=== PATIENT | male | born 1975 | race Caucasian/White ===

== ENCOUNTER 2019-08-03 00:34 | Emergency (ER) | payer OTHER, BC ==
[2019-08-03] MEDS ORDERED: Tamsulosin 0.4 MG Cap.ER PO ONE (01:00)
[2019-08-03] MEDS ORDERED: HYDROmorphone 1 MG/ML Syringe IVPUSH ONE (01:00)
[2019-08-03] MEDS ORDERED: Ondansetron 4 MG/2 ML SDV IVPUSH ONE (01:00)
[2019-08-03] MEDS ORDERED: Ketorolac 30 MG/ML SDV IVPUSH STA (01:00)
[2019-08-03] MEDS ORDERED: Sodium Chloride 0.9% 1,000 ML IV SCH (01:00)
--- NOTE | 2019-08-03 01:05 | EDM.PDOC ---
ED HPI GENERAL MEDICAL PROBLEM - General Chief Complaint: Flank Pain Stated Complaint: RIGHT SIDE PAIN Time Seen by Provider: 08/03/19 00:47 Source of Information: Reports: Patient History Limitations: Reports: No Limitations - History of Present Illness INITIAL COMMENTS - FREE TEXT/NARRATIVE: Mr. Rivera is a very pleasant 43-year-old man with a past medical history significant for untreated GERD, untreated PTSD, and kidney stones, who now presents the ED stating that he developed sudden-onset right lower quadrant abdominal pain around 17:00 last night. He states that the pain started to radiate to his lower right back around midnight, and that it radiates to his left lower quadrant when he attempts to defecate. He has had nausea and emesis. He chronically has diarrhea, due to, he believes, drinking dairy, but no recent constipation or urinary symptoms. The patient states that his current symptoms are very similar to when he has previously had a kidney stone. The patient states that he has had a slight cough productive of yellowish sputum for the past 2 weeks. Otherwise, the patient denies recent fever, chills , sore throat, ear pain, nasal or sinus congestion, dyspnea, chest pain, palpitations, recent weight gain or weight loss, recent bloody bowel movements or black bowel movements, recent joint aches, headaches, or rashes. Here in the ED, the patient is found to be hemodynamically stable, afebrile, saturating at 97% on room air. The patient last ate around 14:00 yesterday afternoon. The [facility] P[facility] at the [facility]. He does not have a Urologist. Right Lower Abdomen Pain Score (Numeric/FACES): 5 - Related Data Allergies Allergy/AdvReac Type Severity Reaction Status Date / Time shellfish derived Allergy Difficulty Verified 08/03/19 00:42 Breathing bee Allergy Hives Uncoded 08/03/19 00:42 Home Meds: Home Meds Acetaminophen/HYDROcodone [[place] 325-5 MG] 1 - 2 tab PO Q6H PRN #24 tablet 08/02 [Rx] Ondansetron [Zofran ODT] 1 tab PO Q8H PRN #10 tab.dis 08/03/19 [Rx] Tamsulosin HCl [Flomax] 1 cap PO QAM PRN #10 cap.er.24h 08/03/19 [Rx] Past Medical History HEENT History: Reports: Impaired Vision Other HEENT History: Wears glasses Gastrointestinal History: Reports: GERD (untreated) Genitourinary History: Reports: Renal Calculus Psychiatric History: Reports: PTSD (untreated) Endocrine/Metabolic History: Reports: Vitamin D Deficiency - Infectious Disease History Infectious Disease History: Reports: Chicken Pox, Influenza - Past Surgical History HEENT Surgical History: Reports: Oral Surgery (wisdom teeth extraction 1997) Social & Family History - Family History Family Medical History: Noncontributory - Tobacco Use Smoking Status *Q: Never Smoker - Caffeine Use Caffeine Use: Reports: Soda Caffeine Use Comment: 2 drink/day - Alcohol Use Alcohol Use History: Yes Alcohol Use Frequency: Rarely - Recreational Drug Use Recreational Drug Use: No - Living Situation & Occupation Living situation: Reports: , with Spouse, with Family (17 yo son, 11 yo daughter) Occupation: Employed ([employer], [employer]) ED ROS GENERAL - Review of Systems Review Of Systems: Comprehensive ROS is negative, except as noted in HPI. ED EXAM, RENAL/ - Physical Exam Exam: See Below Exam Limited By: No Limitations General Appearance: Alert, WD/WN, Mild Distress (appears uncomfortable) Eye Exam: Bilateral Eye: EOMI, Normal Inspection Ears: Normal External Exam, Hearing Grossly Normal Nose: Normal Inspection Throat/Mouth: Normal Inspection, Normal Lips, Normal Voice, No Airway Compromise Head: Atraumatic, Normocephalic Neck: Normal Inspection, Full Range of Motion Respiratory/Chest: No Respiratory Distress, Lungs Clear, Normal Breath Sounds, No Accessory Muscle Use Cardiovascular: Normal Peripheral Pulses, Regular Rate, Rhythm, No Edema, No Gallop, No JVD, No Murmur, No Rub GI/Abdominal: Normal Bowel Sounds, Soft, Non-Tender (including the RLQ), No Organomegaly, No Distention, No Abnormal Bruit, No Mass (Male) Exam: Deferred Rectal (Males) Exam: Deferred Back Exam: Normal Inspection, Full Range of Motion. No: CVA Tenderness (L), CVA Tenderness (R) Extremities: Normal Inspection, Normal Range of Motion, No Pedal Edema, Normal Capillary Refill Neurological: Alert, Oriented, Normal Cognition, No Motor/Sensory Deficits Psychiatric: Normal Affect Skin Exam: Warm, Dry, Intact, Normal Color, No Rash Course - Vital Signs Last Recorded V/S: Last Vital Signs Temp 36.9 C 08/03/19 00:43 Pulse 76 08/03/19 00:43 Resp 16 08/03/19 00:43 BP 146/98 H 08/03/19 00:43 Pulse Ox 97 08/03/19 00:43 - Orders/Labs/Meds Orders: Active Orders 24 hr Category Date Time Status Strain Urine [RC] ASDIRECTED Care 08/03/19 04:12 Ordered Abdomen Pelvis wo Cont [CT] Stat Exams 08/03/19 00:59 Taken Sodium Chloride 0.9% [Normal Saline] 1,000 ml Med 08/03/19 01:00 Active IV ASDIRECTED Medication Orders Sodium Chloride (Normal Saline) 1,000 mls @ 250 mls/hr IV ASDIRECTED MARK Last Admin: 08/03/19 01:14 Dose: 250 mls/hr Labs: Laboratory Tests 08/03/19 Range/Units 03:40 Urine Color Yellow (Yellow) Urine Appearance Cloudy H (Clear) Urine pH 5.5 (5.0-8.0) Ur Specific [place] > or = 1.030 (1.005-1.030) Urine Protein 1+ H (Negative) Urine Glucose (UA) Negative (Negative) Urine Ketones Negative (Negative) Urine Occult Blood 2+ H (Negative) Urine Nitrite Negative (Negative) Urine Bilirubin Negative (Negative) Urine Urobilinogen 0.2 (0.2-1.0) Ur Leukocyte Esterase Negative (Negative) Urine RBC 10-20 H (0-5) /hpf Urine WBC 0-5 (0-5) /hpf Ur Squamous Epith Cells 0-5 (0-5) /hpf Amorphous Sediment Moderate H (NOT SEEN) /hpf Urine Bacteria Moderate H (FEW) /hpf Urine Mucus Moderate H (FEW) /hpf Meds: Medications Generic Name Dose Route Start Last Admin Trade Name Freq PRN Reason Stop Dose Admin Sodium Chloride 1,000 mls @ 250 mls/hr 08/03/19 01:00 08/03/19 01:14 Normal Saline IV 250 mls/hr ASDIRECTED MARK Administration Discontinued Medications Generic Name Dose Route Start Last Admin Trade Name Freq PRN Reason Stop Dose Admin Famotidine 40 mg 08/03/19 04:11 Pepcid PO 08/03/19 04:12 ONETIME STA Hydromorphone HCl 1 mg 08/03/19 01:00 08/03/19 01:16 Dilaudid IVPUSH 08/03/19 01:01 1 mg ONETIME ONE Administration Ketorolac Tromethamine 30 mg 08/03/19 01:00 08/03/19 01:15 Toradol IVPUSH 08/03/19 01:01 30 mg ONETIME STA Administration Ondansetron HCl 4 mg 08/03/19 01:00 08/03/19 01:14 Zofran IVPUSH 08/03/19 01:01 4 mg ONETIME ONE Administration Tamsulosin HCl 0.4 mg 08/03/19 01:00 08/03/19 01:14 Flomax PO 08/03/19 01:01 0.4 mg ONETIME ONE Administration - Re-Assessments/Exams Free Text/Narrative Re-Assessment/Exam: 08/03/19 01:01 It is interesting that the patient does not have right CVA tenderness, but he also does not have abdominal tenderness. His history is most consistent with a recurrence of a ureterolith. I have therefore ordered a urinalysis and a CT of his abdomen and pelvis without contrast. In the meantime, the patient will be given IV Dilaudid, oral Flomax, IV fluid, IV Toradol, and IV Zofran. 08/03/19 02:07 CT of the abdomen and pelvis without contrast as read by Liudmila as: 1. RIGHT nephrolithiasis. 4 mm RIGHT UVJ ureterolith causes moderate RIGHT hydroureteronephrosis. 2. Nonobstructing nephrolithiasis LEFT kidney. 3. No CT findings of acute appendicitis. 4. Moderate to large size hiatal hernia. Fluid within the herniated stomach. Gastroesophageal reflux. 5. Possible mild pulmonary edema versus atelectasis. 6. Additional nonemergent CT findings above. The patient has not yet provided a urine sample for urinalysis. 08/03/19 04:03 The patient's urinalysis is remarkable for cloudy appearance, 2+ occult blood with 10-20 RBCs, leukocyte esterase negative with 0-5 WBCs, nitrite negative with moderate bacteria, and 0-5 squamous epithelial cells. The patient's urinalysis is consistent with a kidney stone, but not consistent with an infection. I will discharge the patient home with prescriptions for Torrey, Flomax, and Zofran. I am also going to recommend that the patient start taking an H2 quentin, such as famotidine, twice a day, to treat his asymptomatic GERD. 08/03/19 04:12 The above plan was discussed with the patient. He is agreeable. We will start him on famotidine now. He will be given a urine strainer before being discharged home. Departure - Departure Time of Disposition: 04:13 Disposition: Home, Self-Care 01 Condition: Good Clinical Impression: Ureterolithiasis, GERD (gastroesophageal reflux disease) - Discharge Information *PRESCRIPTION DRUG MONITORING PROGRAM REVIEWED*: Not Applicable *COPY OF PRESCRIPTION DRUG MONITORING REPORT IN PATIENT ROSIE: Not Applicable Prescriptions: Acetaminophen/HYDROcodone [[place] 325-5 MG] 1 - 2 tab PO Q6H PRN #24 tablet PRN Reason: Pain (Severe 7-10) Ondansetron [Zofran ODT] 1 tab PO Q8H PRN #10 tab.dis PRN Reason: Nausea/Vomiting Tamsulosin HCl [Flomax] 1 cap PO QAM PRN #10 cap.er.24h PRN Reason: Pain Instructions: Kidney Stones, [id number], Gastroesophageal Reflux Disease, Adult, [id number] Referrals: Sarah Melchor MD [Primary Care Provider] - Emre Cadet MD [Ordering Only Provider] - Forms: ED Department Discharge Additional Instructions: You were seen in the emergency room for sudden-onset lower right abdominal pain that eventually radiated to your lower right back. Work-up in the ER included a urinalysis and a CT scan of your abdomen and pelvis without contrast. The CT scan confirmed that you have a 4 mm stone in your lower right ureter, just above the bladder. The CT scan also confirmed that you have acid reflux. Based on the size and location of the stone, you will most likely pass it on your own. We recommend that you take [id number] ibuprofen, 3 tablets (600 mg) every 8 hours, with food, [id number], as needed for discomfort. You may take 1 to 2 tablets of the opioid pain reliever Torrey up to every 6 hours as needed for pain not relieved by ibuprofen. If you take Torrey, do not drive or operate heavy machinery for 12 hours afterwards. Torrey may cause constipation, so consider taking a stool softener. Take 1 tablet of the anti-spasm medicine Flomax every morning, starting tomorrow morning, , 08/04/2019, as needed for discomfort. You may dissolve 1 tablet of the anti-nausea medicine Zofran on your tongue up to every 8 hours, as needed for nausea/vomiting. For your acid reflux, we recommend that you begin taking [id number] famotidine (Pepcid), 1 tablet twice a day. Stay adequately hydrated. It does not really matter what type of fluid you drink. Strain all of your urine. If you capture the stone, take it to your doctor for analysis. If you fail to pass the stone within the next week or so, please follow-up with the Urologist Dr. Emre Cadet, in [place]. If any other problems, please do not hesitate to return to the ER. Sepsis Event Note - Evaluation Sepsis Screening Result: No Definite Risk - Focused Exam Vital Signs: Vital Signs Temp Pulse Resp BP Pulse Ox 08/03/19 00:43 36.9 C 76 16 146/98 H 97 Date Exam was Performed: 08/03/19 Time Exam was Performed: 04:24 - My Orders Last 24 Hours: My Active Orders 08/03/19 00:59 Abdomen Pelvis wo Cont [CT] Stat 08/03/19 01:00 Sodium Chloride 0.9% [Normal Saline] 1,000 ml IV ASDIRECTED 08/03/19 04:12 Strain Urine [RC] ASDIRECTED - Assessment/Plan Last 24 Hours: My Active Orders 08/03/19 00:59 Abdomen Pelvis wo Cont [CT] Stat 08/03/19 01:00 Sodium Chloride 0.9% [Normal Saline] 1,000 ml IV ASDIRECTED 08/03/19 04:12 Strain Urine [RC] ASDIRECTED
[2019-08-03] MEDS ORDERED: Famotidine 20 MG Tab PO STA (04:11)
--- NOTE | 2019-08-03 07:21 | CT ---
CT abdomen and pelvis Technique: Multiple axial sections were obtained from above the dome of the diaphragm inferiorly through the pubic symphysis. Intravenous and oral contrast was not utilized. Study has been performed as a ureteral stone protocol. Comparison: Prior CT abdomen and pelvis study of 03/12/18. Findings: Visualized lung bases show nothing acute. Moderately large hiatal hernia is noted. Noncontrast appearance of the liver and spleen shows no focal abnormality. Right adrenal gland shows a nodule measuring 1.8 cm. This appears stable from prior exam and most likely represents a small adrenal adenoma. Left adrenal gland is unremarkable. Pancreas is normal. Gallbladder contains no calcified gallstones. Aorta shows no aneurysm. No retroperitoneal adenopathy or mesenteric abnormalities are seen. No free fluid or inflammatory change is seen. Appendix is seen which is normal. Right kidney shows a nonobstructing stone within the mid pole measuring 5 mm. Vague calcifications are noted within the lower pole of the left kidney most likely representing additional nonobstructing calculi. Right ureter is mildly prominent in size. There are 1 or 2 possible calcifications within the right distal ureter close to the UVJ measuring around 4 mm. No other ureteral calculi are seen. Bone window settings were reviewed which appear within normal limits for the patient's age with no acute osseous finding being appreciated. Impression: 1. Mildly dilated right ureter with 1 or 2 calcifications within the distal right ureter compatible with obstructing distal right ureteral calculi located close to the UVJ. These measure around 4 mm in size. 2. Nonobstructing calculi within both kidneys. 3. Other findings believed to be stable and nonacute as described above. Diagnostic code #3 This report was dictated in MDT I agree with preliminary report from [facility], finalized on 08/03/19, 2:52 AM Central Daylight Time
== END 2019-08-03 04:34 | disposition home or self-care (01) ==
LOC: JD.ED 00:34
DX: N20.2 Calculus of kidney with calculus of ureter (principal); K21.9 Gastro-esophageal reflux disease without esophagitis; Z91.030 Bee allergy status; Z91.013 Allergy to seafood
CPT/HCPCS: 74176; 81001; 96361; 96374; 96375; 99284; A9270; J1170; J1885; J2405; J7030

== ENCOUNTER 2020-08-07 15:48 | Emergency (ER) | payer OTHER ==
--- NOTE | 2020-08-07 17:00 | EDM.PDOC ---
ED HPI GENERAL MEDICAL PROBLEM - General Chief Complaint: Laceration Stated Complaint: LT THUMB FINGER LAC Time Seen by Provider: 08/07/20 16:42 Source of Information: Reports: Patient, RN Notes Reviewed History Limitations: Reports: No Limitations - History of Present Illness INITIAL COMMENTS - FREE TEXT/NARRATIVE: Patient is a 44-year-old male presenting to the emergency department with complaints of a laceration to the medial aspect of his left distal thumb. States he was cutting up asparagus this morning when he cut his finger. He had a Band-Aid on it and the bleeding had initially stopped, however it started again, therefore he presents to the ER for evaluation. He is unsure when his last tetanus vaccination was, however states he did have a ER visit in [place] a few years back with a finger injury. - Related Data Allergies Allergy/AdvReac Type Severity Reaction Status Date / Time shellfish derived Allergy Difficulty Verified 08/07/20 16:02 Breathing bee Allergy Hives Uncoded 08/07/20 16:02 Home Meds: Home Meds Acetaminophen/HYDROcodone [[place] 325-5 MG] 1 - 2 tab PO Q6H PRN #24 tablet 08/03/19 [Rx] Ondansetron [Zofran ODT] 1 tab PO Q8H PRN #10 tab.dis 08/03/19 [Rx] Tamsulosin HCl [Flomax] 1 cap PO QAM PRN #10 cap.er.24h 08/03/19 [Rx] Past Medical History - Past Health History Medical/Surgical History: Denies Medical/Surgical History HEENT History: Reports: Impaired Vision Other HEENT History: Wears glasses Cardiovascular History: Reports: None Respiratory History: Reports: None Gastrointestinal History: Reports: GERD Other Gastrointestinal History: acid reflux Genitourinary History: Reports: Renal Calculus Musculoskeletal History: Reports: None Neurological History: Reports: None Psychiatric History: Reports: PTSD Endocrine/Metabolic History: Reports: Vitamin D Deficiency Hematologic History: Reports: None Oncologic (Cancer) History: Reports: None Dermatologic History: Reports: None - Infectious Disease History Infectious Disease History: Reports: Chicken Pox, Influenza, Novel Coronavirus Other Infectious Disease History: Nov 2019 - Past Surgical History HEENT Surgical History: Reports: Oral Surgery GI Surgical History: Reports: None Male Surgical History: Reports: None Social & Family History - Family History Family Medical History: No Pertinent Family History - Tobacco Use Tobacco Use Status *Q: Never Tobacco User - Caffeine Use Caffeine Use: Reports: None Caffeine Use Comment: 2 drink/day - Recreational Drug Use Recreational Drug Use: No - Living Situation & Occupation Living situation: Reports: , with Spouse, with Family (17 yo son, 11 yo daughter) Occupation: Employed ([employer]) ED ROS GENERAL - Review of Systems Review Of Systems: Comprehensive ROS is negative, except as noted in HPI. ED EXAM, SKIN/RASH Exam: See Below Exam Limited By: No Limitations General Appearance: Alert, WD/WN, No Apparent Distress Respiratory/Chest: No Respiratory Distress, Lungs Clear, Normal Breath Sounds, No Accessory Muscle Use, Chest Non-Tender Cardiovascular: Normal Peripheral Pulses, Regular Rate, Rhythm, No Edema, No Gallop, No JVD, No Murmur, No Rub Extremities: Other (1.5 cm superficial laceration to the medial aspect of the le ft distal thumb. No active bleeding.) ED SKIN PROCEDURES - Laceration/Wound Repair Left Medial Digit - 1st (Thumb) Appearance: Superficial Skin Prep: Chlorhexidine (Hibiciens), Saline Exploration/Debridement/Repair: Wound Explored Closed with: Dermabond Lac/Wound length In cm: 1.5 Sterile Dressing Applied: Nurse Tetanus Status Addressed: Yes Complications: No Course - Vital Signs Last Recorded V/S: Last Vital Signs Temp 98.1 F 08/07/20 15:59 Pulse 75 08/07/20 15:59 Resp 18 08/07/20 15:59 BP 140/107 H 08/07/20 15:59 Pulse Ox 99 08/07/20 15:59 - Re-Assessments/Exams Free Text/Narrative Re-Assessment/Exam: Patient is a 44-year-old male presenting to the emergency department for evaluation with regards to a laceration on his left thumb that he incurred this morning. Initially it stopped bleeding, however after removing the Band-Aid it started bleeding again. On exam, he has a 1.5 cm fairly superficial laceration. It is not gaping. There is no active bleeding. I was able to close it with surgical glue. See procedure notes for closure. Recommend wearing a Band-Aid for the next few days to prevent the glue from coming off prematurely. On review of his records, he did have a tetanus vaccination in 2017, therefore he is current with that. Discharge instructions as documented. Departure - Departure Time of Disposition: 16:59 Disposition: Home, Self-Care 01 Condition: Good Clinical Impression: Laceration of finger of left hand - Discharge Information *PRESCRIPTION DRUG MONITORING PROGRAM REVIEWED*: No *COPY OF PRESCRIPTION DRUG MONITORING REPORT IN PATIENT ROSIE: No Instructions: Laceration Care, Adult Referrals: Sarah Melchor MD [Primary Care Provider] - Forms: ED Department Discharge Additional Instructions: You were seen in the emergency department today for a laceration to your left thumb. The wound was cleansed and closed with surgical glue. This will begin to gradually follow-up over the next few days. Recommend wearing a Band-Aid over the area to prevent the glue from falling off prematurely. Watch for signs of infection including increased redness, swelling, or purulent drainage. If these should occur, you should be seen either in the clinic or in the emergency department as antibiotic treatment may be needed. Return to the ER as needed. Sepsis Event Note (ED) - Evaluation Sepsis Screening Result: No Definite Risk - Focused Exam Vital Signs: Vital Signs Temp Pulse Resp BP Pulse Ox 08/07/20 15:59 98.1 F 75 18 140/107 H 99
== END 2020-08-07 17:20 | disposition home or self-care (01) ==
LOC: JD.ED 15:48
DX: S61.012A Laceration without foreign body of left thumb without damage to nail, initial encounter (principal); Z91.030 Bee allergy status; Z91.013 Allergy to seafood; Z86.16 Personal history of COVID-19; W26.8XXA Contact with other sharp object(s), not elsewhere classified, initial encounter
CPT/HCPCS: 12001; 12011; 99282; 99282-25

== ENCOUNTER 2020-11-05 21:18 | Emergency (ER) | payer OTHER ==
[2020-11-05] MEDS ORDERED: HYDROmorphone 1 MG/ML Syringe IVPUSH ONE (23:03)
[2020-11-05] MEDS ORDERED: Ondansetron 4 MG/2 ML SDV IVPUSH ONE (23:03)
[2020-11-05] MEDS ORDERED: Tamsulosin 0.4 MG Cap.ER PO ONE (23:03)
[2020-11-05] MEDS ORDERED: Ketorolac 30 MG/ML SDV IVPUSH STA (23:03)
--- NOTE | 2020-11-05 23:11 | EDM.PDOC ---
ED HPI GENERAL MEDICAL PROBLEM - General Chief Complaint: Abdominal Pain Stated Complaint: FLANK PAIN Time Seen by Provider: 11/05/20 22:53 Source of Information: Reports: Patient, Family (Son) History Limitations: Reports: No Limitations - History of Present Illness INITIAL COMMENTS - FREE TEXT/NARRATIVE: Mr. Rivera is a very pleasant with a past medical history significant for ureterolithiasis, who now presents the ED stating that he developed sudden-onset right flank pain, along with nausea and vomiting around 17:00 this evening. The pain has been constant, although he states that it is starting to let up now. He has not identified any modifiers. He states that his symptoms are virtually identical to prior kidney stones. He did not take any [id number] or home remedies prior to coming to the ED. Here in the ED, the patient's initial BP is found to be mildly elevated at 157/113, otherwise, he is hemodynamically stable, afebrile, saturating 100% on room air. He appears to be somewhat uncomfortable, but in no acute distress. Prior to 17:00 this evening, the patient denies having a recent fever, chills, sore throat, ear pain, nasal or sinus congestion, cough, dyspnea, chest pain, palpitations, nausea, vomiting, constipation, diarrhea, abdominal pain, urinary symptoms, recent weight gain or weight loss, recent bloody bowel movements or black bowel movements, recent joint aches, headaches, or rashes. The patient's PCP is Dr. Sarah Melchor at the [facility]. He does not have a Urologist. Right Flank Pain Score (Numeric/FACES): 7 Lower Pelvic Pain Score (Numeric/FACES): 8 - Related Data Allergies Allergy/AdvReac Type Severity Reaction Status Date / Time shellfish derived Allergy Severe Difficulty Verified 11/05/20 21:41 Breathing bee Allergy Severe Hives Uncoded 11/05/20 21:41 Home Meds: Home Meds Acetaminophen/HYDROcodone [[place] 325-5 MG] 1 - 2 tab PO Q6H PRN #24 tablet 08/03/19 [Rx] Ondansetron [Zofran ODT] 1 tab PO Q8H PRN #10 tab.dis 08/03/19 [Rx] Tamsulosin HCl [Flomax] 1 cap PO QAM PRN #10 cap.er.24h 08/03/19 [Rx] Pantoprazole Sodium [Protonix] 40 mg PO DAILY 11/05/20 [History] Sucralfate 1 gram PO QID 11/05/20 [History] Ondansetron [Zofran ODT] 1 tab PO Q8H PRN #10 tab.dis 11/06/20 [Rx] Tamsulosin [Flomax] 1 cap PO QAM PRN #10 cap.er 11/06/20 [Rx] oxyCODONE HCl/Acetaminophen [Percocet 2.5-325 mg Tablet] 1 - 2 tab PO Q6H PRN #14 tablet 11/06/20 [Rx] Past Medical History HEENT History: Reports: Impaired Vision (wears glasses) Gastrointestinal History: Reports: GERD Genitourinary History: Reports: Renal Calculus Psychiatric History: Reports: PTSD (untreated) Endocrine/Metabolic History: Reports: Vitamin D Deficiency - Infectious Disease History Infectious Disease History: Reports: Chicken Pox, Influenza, Novel Coronavirus (Nov 2019) - Past Surgical History HEENT Surgical History: Reports: Oral Surgery (dental extractions) Social & Family History - Tobacco Use Tobacco Use Status *Q: Former Tobacco User Month/Year Tobacco Last Used: Quit early - Caffeine Use Caffeine Use: Reports: Soda Caffeine Use Comment: 2 drink/day - Alcohol Use Alcohol Use History: No - Recreational Drug Use Recreational Drug Use: No - Living Situation & Occupation Living situation: Reports: , with Family (4 kids) 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 ED EXAM, RENAL/ - Physical Exam Exam: See Below Exam Limited By: No Limitations General Appearance: Alert, WD/WN, Mild Distress (appears uncomfortable) Eye Exam: Bilateral Eye: EOMI, Normal Inspection Ears: Normal External Exam, Hearing Grossly Normal Nose: Normal Inspection Throat/Mouth: Normal Inspection, Normal Lips, Normal Voice, No Airway Compromise Head: Atraumatic, Normocephalic Neck: Normal Inspection, Full Range of Motion Respiratory/Chest: No Respiratory Distress, Lungs Clear, Normal Breath Sounds, No Accessory Muscle Use Cardiovascular: Normal Peripheral Pulses, Regular Rate, Rhythm, No Edema, No Gallop, No JVD, No Murmur, No Rub GI/Abdominal: Normal Bowel Sounds, Soft, Non-Tender (including the RLQ), No Organomegaly, No Distention, No Abnormal Bruit, No Mass Back Exam: Normal Inspection, Full Range of Motion. No: CVA Tenderness (L), CVA Tenderness (R) Extremities: Normal Inspection, Normal Range of Motion, No Pedal Edema, Normal Capillary Refill Neurological: Alert, Oriented, Normal Cognition, No Motor/Sensory Deficits Psychiatric: Normal Affect Skin Exam: Warm, Dry, Intact, Normal Color, No Rash Course - Vital Signs Last Recorded V/S: Last Vital Signs Temp 36.0 C L 11/05/20 21:47 Pulse 76 11/05/20 21:47 Resp 20 11/05/20 21:47 BP 157/113 H 11/05/20 21:47 Pulse Ox 100 11/05/20 21:47 - Orders/Labs/Meds Orders: Active Orders 24 hr Category Date Time Status Strain Urine [RC] ASDIRECTED Care 11/06/20 00:29 Active Abdomen Pelvis wo Cont [CT] Stat Exams 11/05/20 23:02 Taken Sodium Chloride 0.9% [Normal Saline] 1,000 ml Med 11/05/20 23:15 Active IV ASDIRECTED Medication Orders Sodium Chloride (Normal Saline) 1,000 mls @ 150 mls/hr IV ASDIRECTED MARK Last Admin: 11/05/20 23:14 Dose: 150 mls/hr Documented by: STEPHANIE Labs: Laboratory Tests 11/05/20 Range/Units 23:08 Urine Color Yellow (Yellow) Urine Appearance Slt cloudy H (Clear) Urine pH 6.0 (5.0-8.0) Ur Specific [place] > or = 1.030 (1.005-1.030) Urine Protein 2+ H (Negative) Urine Glucose (UA) Negative (Negative) Urine Ketones Negative (Negative) Urine Occult Blood 3+ H (Negative) Urine Nitrite Negative (Negative) Urine Bilirubin Negative (Negative) Urine Urobilinogen 0.2 (0.2-1.0) Ur Leukocyte Esterase Negative (Negative) Urine RBC 75-100 H (0-5) /hpf Urine WBC 0-5 (0-5) /hpf Ur Squamous Epith Cells 0-5 (0-5) /hpf Urine Bacteria Few (FEW) /hpf Urine Mucus Moderate H (FEW) /hpf Meds: Medications Generic Name Dose Route Start Last Admin Trade Name Nandini PRN Reason Stop Dose Admin Sodium Chloride 1,000 mls @ 150 mls/hr 11/05/20 23:15 11/05/20 23:14 Normal Saline IV 150 mls/hr ASDIRECTED MARK Administration Discontinued Medications Generic Name Dose Route Start Last Admin Trade Name Nandini PRN Reason Stop Dose Admin Hydromorphone HCl 1 mg 11/05/20 23:03 11/05/20 23:14 Hydromorphone 1 Mg/Ml Syringe IVPUSH 11/05/20 23:04 1 mg ONETIME ONE Administration Ketorolac Tromethamine 30 mg 11/05/20 23:03 11/05/20 23:14 Ketorolac 30 Mg/Ml Sdv IVPUSH 11/05/20 23:04 30 mg ONETIME STA Administration Ondansetron HCl 4 mg 11/05/20 23:03 11/05/20 23:14 Ondansetron 4 Mg/2 Ml Sdv IVPUSH 11/05/20 23:04 4 mg ONETIME ONE Administration Tamsulosin HCl 0.4 mg 11/05/20 23:03 11/05/20 23:15 Tamsulosin 0.4 Mg Cap.Er PO 11/05/20 23:04 0.4 mg ONETIME ONE Administration - Re-Assessments/Exams Free Text/Narrative Re-Assessment/Exam: 11/05/20 23:04 As above, the patient developed sudden-onset right flank pain and vomiting around 17:00 this evening, and since then, the pain has radiated down to his right lower quadrant. His symptoms are similar to prior ureteroliths. He did not take any [id number] or home remedies prior to coming to the ED. Here in the ED, the patient noticed that his urine appears to be dark. On examination, the patient does not have any CVA tenderness or abdominal tenderness, including the right lower quadrant, however, his presentation is most consistent with a right ureterolith, therefore I have ordered a urinalysis and CT of the abdomen and pelvis without contrast to evaluate. In the meantime, the patient will be given IV Dilaudid, oral Flomax, IV fluid, IV Toradol, and IV Zofran. 11/06/20 00:11 The patient's urinalysis is remarkable for 3+ occult blood with 75-100 RBCs, leukocyte esterase negative with 0-5 WBCs, nitrite negative with few bacteria, and 0-5 squamous epithelial cells. 11/06/20 00:43 CT of the abdomen and pelvis without contrast is read by [facility] as: 1. 3 mm distal right ureteral calculus at the UVJ or just in the bladder with hydroureter and hydronephrosis. 2. Mild right perinephric stranding suggests forniceal rupture and/or infection. 11/06/20 00:55 Test results discussed with the patient. He states that he is feeling much better. I will discharge him home with prescriptions for [place], tamsulosin, and Zofran. He will be given a urine strainer to strain his urine. He should stay adequately hydrated. He will also be given a CD-ROM of his CT images; I would like him to follow-up with Dr. Cadet regarding the possible forniceal rupture. Departure - Departure Time of Disposition: 00:56 Disposition: Home, Self-Care 01 Condition: Good Clinical Impression: Ureterolithiasis - Discharge Information *PRESCRIPTION DRUG MONITORING PROGRAM REVIEWED*: Not Applicable *COPY OF PRESCRIPTION DRUG MONITORING REPORT IN PATIENT ROSIE: Not Applicable Prescriptions: Tamsulosin [Flomax] 1 cap PO QAM PRN #10 cap.er PRN Reason: Pain oxyCODONE HCl/Acetaminophen [Percocet 2.5-325 mg Tablet] 1 - 2 tab PO Q6H PRN #14 tablet PRN Reason: Pain (Severe 7-10) Ondansetron [Zofran ODT] 1 tab PO Q8H PRN #10 tab.dis PRN Reason: Nausea/Vomiting Referrals: Sarah Melchor MD [Primary Care Provider] - Emre Cadet MD [Ordering Only Provider] - Forms: ED Department Discharge Additional Instructions: You were seen in the emergency room after you developed sudden-onset right flank pain with vomiting. Work-up in the ER included a urinalysis and a CT scan of your abdomen and pelvis. Your urine showed blood, but no infection. The CT scan found a 3 mm stone at the junction of your right ureter and bladder. It is possible that you have already passed this stone into your bladder. The CT scan also found some stranding around your kidney, suggesting that there may be some injury to the inside of your kidney. We recommend that you stay adequately hydrated. It does not really matter what type of fluid you drink. You have been provided with a urine strainer. Please strain all of your urine. If you capture the stone, take it to your doctor for analysis. We recommend that you take [id number] ibuprofen, 2 to 3 tablets (400-600 mg) around the clock, with food, for the next couple of days, until you are feeling better. You have been provided with a prescription for the opioid pain reliever Percocet. You may take 1 to 2 tablets of Percocet up to every 6 hours, as needed for pain not relieved by ibuprofen. If you take Percocet, do not drive or operate heavy machinery for 12 hours afterwards. Percocet may cause constipation, so consider taking a stool softener. You may take 1 tablet of the anti-spasm medicine tamsulosin (Flomax) every morning, starting tomorrow morning, 11/07/2020, as prescribed. You may dissolve 1 tablet of the antinausea medicine Zofran on your tongue up to every 8 hours, as needed for nausea/vomiting. You have been provided with a CD ROM of your CT images. Please follow-up with the Urologist Dr. Emre Cadet, in [place], at the next available appointment, to have him review the CT images to see if anything needs to be do ne. Don't forget that [place] is 1 hour ahead of us. If any other problems, please do not hesitate to return to the ER. Sepsis Event Note (ED) - Evaluation Sepsis Screening Result: No Definite Risk - Focused Exam Vital Signs: Vital Signs Temp Pulse Resp BP Pulse Ox 11/05/20 21:47 36.0 C L 76 20 157/113 H 100 - My Orders Last 24 Hours: My Active Orders 11/05/20 23:02 Abdomen Pelvis wo Cont [CT] Stat 11/05/20 23:15 Sodium Chloride 0.9% [Normal Saline] 1,000 ml IV ASDIRECTED 11/06/20 00:29 Strain Urine [RC] ASDIRECTED - Assessment/Plan Last 24 Hours: My Active Orders 11/05/20 23:02 Abdomen Pelvis wo Cont [CT] Stat 11/05/20 23:15 Sodium Chloride 0.9% [Normal Saline] 1,000 ml IV ASDIRECTED 11/06/20 00:29 Strain Urine [RC] ASDIRECTED
[2020-11-05] MEDS ORDERED: Sodium Chloride 0.9% 1,000 ML IV SCH (23:15)
--- NOTE | 2020-11-06 07:57 | CT ---
CT abdomen and pelvis Technique: Multiple axial sections were obtained from above the dome of the diaphragm inferiorly through the pubic symphysis. Intravenous and oral contrast were not utilized. Study has been performed as a ureteral stone protocol. Comparison: Prior CT abdomen and pelvis study of 03/12/18. Findings: Right kidney shows dilated collecting system as well as dilated right ureter. These findings are caused by a small calculus measuring about 3.5-4 mm which is located within the right UVJ or possibly slightly outside the right UVJ within the bladder. Please correlate with patient's symptoms. Slight inflammatory change is seen compatible with obstruction around the right ureter and kidney. Small nonobstructing calculus is seen within the left kidney. Right kidney shows no abnormal calcifications. Slight chronic change is noted next to a fairly large hiatal hernia within the left lung base. Noncontrast appearance of the liver shows no focal abnormality. Spleen size is normal. Nodule is noted within the right adrenal gland which is most likely due to a benign adrenal adenoma which is stable from prior exam. Left adrenal gland is normal. Pancreas shows no acute abnormality. Gallbladder contains no calcified gallstones. Abdominal aorta shows no aneurysm. No retroperitoneal adenopathy or mesenteric abnormalities are seen. Appendix is seen which is normal. No pelvic mass or adenopathy is seen. Bone window settings were reviewed which show no acute osseous finding. Impression: 1. 3.5-4 mm calculus causing proximal hydronephrosis on the right side. This calculus is located either within the distal UVJ or within the adjacent bladder. Please correlate with the patient's symptoms. 2. Nonobstructing small stone within the left kidney. 3. Other findings believed to be nonacute as described above. Diagnostic code #3 I mostly agree with preliminary report from [facility], finalized on 11/06/20, 1:39 AM CDT, code 2
== END 2020-11-06 01:23 | disposition home or self-care (01) ==
LOC: JD.ED 21:18
DX: N13.2 Hydronephrosis with renal and ureteral calculous obstruction (principal); K21.9 Gastro-esophageal reflux disease without esophagitis; Z79.899 Other long term (current) drug therapy; Z86.16 Personal history of COVID-19; Z91.030 Bee allergy status; Z91.013 Allergy to seafood
CPT/HCPCS: 74176; 81001; 96374; 96375; 99284; A9270; J1170; J1885; J2405; J7030

== ENCOUNTER 2021-03-12 23:43 | Emergency (ER) | payer OTHER ==
[2021-03-13] MEDS ORDERED: Ondansetron 4 MG/2 ML SDV IVPUSH ONE ×2 (00:01→00:48)
[2021-03-13] MEDS ORDERED: Sodium Chloride 0.9% 10 ML Syringe FLUSH PRN (00:01)
[2021-03-13] MEDS ORDERED: Sodium Chloride 0.9% 1,000 ML IV SCH (00:15)
[2021-03-13] MEDS ORDERED: HYDROmorphone 1 MG/ML Syringe IVPUSH ONE (00:48)
--- NOTE | 2021-03-13 00:52 | EDM.PDOC ---
ED HPI GENERAL MEDICAL PROBLEM - General Chief Complaint: Gastrointestinal Problem Stated Complaint: VOMITING/BACK PAIN Time Seen by Provider: 03/13/21 00:35 Source of Information: Reports: Patient History Limitations: Reports: No Limitations - History of Present Illness INITIAL COMMENTS - FREE TEXT/NARRATIVE: Mr. Rivera is a very pleasant 45-year-old gentleman who states that he ate around 19:00 this evening, then developed nausea with emesis around 20:00, followed by right flank pain around 20:15, which has progressively gotten worse. The patient states that his pain is the same as prior kidney stones, although he has not previously had nausea and vomiting associated with them. He has not taken any kpbj-jfn-[id number] or home remedies since the onset of his symptoms. Here in the ED, the patient's initial BP is found to be elevated at 162/110, with slight tachypnea of 24 rpm. He is afebrile, saturating 98% on room air. He appears to be somewhat uncomfortable, although in no acute distress. The patient states that he suffers from chronic watery diarrhea, otherwise, prior to this evening, he denies having a recent fever, chills, sore throat, ear pain, nasal or sinus congestion, cough, dyspnea, chest pain, palpitations, nausea, vomiting, constipation, abdominal pain, urinary symptoms, recent weight gain or weight loss, recent bloody bowel movements or black bowel movements, recent joint aches, headaches, or rashes. The patient's PCP is Dr. Sarah Melchor at the [facility] clinic. He has not received a COVID vaccination, nor an influenza vaccination this season. Back Pain Score (Numeric/FACES): 4 - Related Data Allergies Allergy/AdvReac Type Severity Reaction Status Date / Time shellfish derived Allergy Severe Difficulty Verified 03/12/21 23:52 Breathing bee Allergy Severe Hives Uncoded 03/12/21 23:52 Home Meds: Home Meds Acetaminophen/HYDROcodone [[place] 325-5 MG] 1 - 2 tab PO Q6H PRN #24 tablet 08/03/19 [Rx] Ondansetron [Zofran ODT] 1 tab PO Q8H PRN #10 tab.dis 08/03/19 [Rx] Tamsulosin HCl [Flomax] 1 cap PO QAM PRN #10 cap.er.24h 08/03/19 [Rx] Pantoprazole Sodium [Protonix] 40 mg PO DAILY 11/05/20 [History] Sucralfate 1 gram PO QID 11/05/20 [History] Ondansetron [Zofran ODT] 1 tab PO Q8H PRN #10 tab.dis 11/06/20 [Rx] Tamsulosin [Flomax] 1 cap PO QAM PRN #10 cap.er 11/06/20 [Rx] oxyCODONE HCl/Acetaminophen [Percocet 2.5-325 mg Tablet] 1 - 2 tab PO Q6H PRN #14 tablet 11/06/20 [Rx] Acetaminophen/oxyCODONE [Percocet 325-5 MG] 1 - 2 tab PO Q6H PRN #24 tab 03/13/21 [Rx] Ondansetron [Zofran ODT] 1 tab PO Q8H PRN #20 tab.dis 03/13/21 [Rx] Tamsulosin [Flomax] 1 cap PO QAM PRN #15 cap.er 03/13/21 [Rx] Past Medical History HEENT History: Reports: Impaired Vision (wears glasses) Gastrointestinal History: 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) Genitourinary History: Reports: Renal Calculus Psychiatric History: Reports: Depression (untreated), PTSD (untreated) Endocrine/Metabolic History: Reports: Vitamin D Deficiency - Infectious Disease History Infectious Disease History: Reports: Chicken Pox, Influenza, Novel Coronavirus (dx'd Nov 2019) - Past Surgical History HEENT Surgical History: Reports: Oral Surgery Social & Family History - Tobacco Use Tobacco Use Status *Q: Former Tobacco User Years of Tobacco use: 3 Packs/Tins Daily: 1 Month/Year Tobacco Last Used: Quit early Tobacco Use Comment: Started smoking 1989 - Caffeine Use Caffeine Use: Reports: Energy Drinks, Soda Caffeine Use Comment: 2 drink/day - Alcohol Use Alcohol Use History: No - Recreational Drug Use Recreational Drug Use: No - Living Situation & Occupation Living situation: Reports: , with Family (1 child) 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 ED EXAM, RENAL/ - Physical Exam Exam: See Below Exam Limited By: No Limitations General Appearance: Alert, WD/WN, Mild Distress (Appears uncomfortable) Eye Exam: Bilateral Eye: EOMI, Normal Inspection Ears: Normal External Exam, Hearing Grossly Normal Nose: Normal Inspection Throat/Mouth: Normal Inspection, Normal Lips, Normal Voice, No Airway Compromise Head: Atraumatic, Normocephalic Neck: Normal Inspection, Full Range of Motion Respiratory/Chest: No Respiratory Distress, Lungs Clear, Normal Breath Sounds, No Accessory Muscle Use Cardiovascular: Normal Peripheral Pulses, Regular Rate, Rhythm, No Edema, No Gallop, No JVD, No Murmur, No Rub GI/Abdominal: Normal Bowel Sounds, Soft, Non-Tender (including on the right), No Organomegaly, No Distention, No Abnormal Bruit, No Mass Back Exam: Normal Inspection, Full Range of Motion. No: CVA Tenderness (L), CVA Tenderness (R) Extremities: Normal Inspection, Normal Range of Motion, Non-Tender, Normal Capillary Refill, No Pedal Edema Neurological: Alert, Oriented, Normal Cognition, No Motor/Sensory Deficits Psychiatric: Normal Affect Skin Exam: Warm, Dry, Intact, Normal Color, No Rash Course - Vital Signs Last Recorded V/S: Last Vital Signs Temp 35.8 C L 03/12/21 23:49 Pulse 74 03/12/21 23:49 Resp 24 H 03/12/21 23:49 BP 162/110 H 03/12/21 23:49 Pulse Ox 98 03/12/21 23:49 Orthostatic Blood Pressure [ 165/105 Standing] Orthostatic Blood Pressure [ 168/111 Supine] - Orders/Labs/Meds Labs: Laboratory Tests 03/13/21 03/13/21 03/13/21 Range/Units 00:15 00:15 04:35 WBC 10.44 H (4.23-9.07) K/mm3 RBC 5.00 (4.63-6.08) M/mm3 Hgb 14.5 (13.7-17.5) gm/dl Hct 43.1 (40.1-51.0) % MCV 86.2 (79.0-92.2) fl MCH 29.0 (25.7-32.2) pg MCHC 33.6 (32.2-35.5) g/dl RDW Std Deviation 43.0 (35.1-43.9) fL Plt Count 257 (163-337) K/mm3 MPV 9.6 (9.4-12.3) fl Neut % (Auto) 81.4 H (34.0-67.9) % Lymph % (Auto) 14.4 L (21.8-53.1) % Stanley % (Auto) 3.4 L (5.3-12.2) % Eos % (Auto) 0.3 L (0.8-7.0) Baso % (Auto) 0.3 (0.1-1.2) % Neut # (Auto) 8.50 H (1.78-5.38) K/mm3 Lymph # (Auto) 1.50 (1.32-3.57) K/mm3 Stanley # (Auto) 0.36 (0.30-0.82) K/mm3 Eos # (Auto) 0.03 L (0.04-0.54) K/mm3 Baso # (Auto) 0.03 (0.01-0.08) K/mm3 Sodium 145 (136-145) mEq/L Potassium 4.1 (3.5-5.1) mEq/L Chloride 105 (98-107) mEq/L Carbon Dioxide 28 (21-32) mEq/L Anion Gap 16.1 H (5-15) BUN 21 H (7-18) mg/dL Creatinine 1.6 H (0.7-1.3) mg/dL Est Cr Clr Drug Dosing 64.50 mL/min Estimated GFR (MDRD) 47 (>60) mL/min BUN/Creatinine Ratio 13.1 L (14-18) Glucose 130 H (70-99) mg/dL Calcium 9.5 (8.5-10.1) mg/dL Magnesium 1.9 (1.8-2.4) mg/dL Total Bilirubin 0.5 (0.2-1.0) mg/dL AST 21 (15-37) U/L ALT 29 (16-63) U/L Alkaline Phosphatase 91 (46-116) U/L C-Reactive Protein <0.2 (<1.0) mg/dL Total Protein 8.0 (6.4-8.2) g/dl Albumin 4.3 (3.4-5.0) g/dl Globulin 3.7 gm/dL Albumin/Globulin Ratio 1.2 (1-2) Lipase 133 (73-393) U/L Urine Color Yellow (Yellow) Urine Appearance Cloudy H (Clear) Urine pH 5.5 (5.0-8.0) Ur Specific [place] > or = 1.030 (1.005-1.030) Urine Protein 1+ H (Negative) Urine Glucose (UA) Negative (Negative) Urine Ketones 1+ H (Negative) Urine Occult Blood 2+ H (Negative) Urine Nitrite Negative (Negative) Urine Bilirubin Negative (Negative) Urine Urobilinogen 0.2 (0.2-1.0) Ur Leukocyte Esterase Negative (Negative) Urine RBC 10-20 H (0-5) /hpf Urine WBC 0-5 (0-5) /hpf Ur Squamous Epith Cells 0-5 (0-5) /hpf Triple Phos Crystals Moderate H (NONE) /hpf Urine Bacteria Few (FEW) /hpf Urine Mucus Moderate H (FEW) /hpf Meds: Medications Discontinued Medications Generic Name Dose Route Start Last Admin Trade Name Freq PRN Reason Stop Dose Admin Hydromorphone HCl 1 mg 03/13/21 00:48 03/13/21 00:55 Hydromorphone 1 Mg/Ml Syringe IVPUSH 03/13/21 00:49 1 mg ONETIME ONE Administration Sodium Chloride 1,000 mls @ 999 mls/hr 03/13/21 00:15 03/13/21 00:19 Normal Saline IV 03/13/21 01:14 999 mls/hr Q1H MARK Administration Sodium Chloride 1,000 mls @ 999 mls/hr 03/13/21 03:20 03/13/21 03:26 Normal Saline IV 03/13/21 04:20 999 mls/hr ONETIME ONE Administration Ondansetron HCl 4 mg 03/13/21 00:01 03/13/21 00:19 Ondansetron 4 Mg/2 Ml Sdv IVPUSH 03/13/21 00:02 4 mg ONETIME ONE Administration Ondansetron HCl 4 mg 03/13/21 00:48 03/13/21 03:29 Ondansetron 4 Mg/2 Ml Sdv IVPUSH 03/13/21 00:49 4 mg ONETIME ONE Administration Ondansetron HCl Confirm 03/13/21 03:28 03/13/21 04:20 Ondansetron 4 Mg/2 Ml Sdv Administered 03/13/21 03:29 Not Given Dose 4 mg .ROUTE .STK-MED ONE Sodium Chloride 10 ml 03/13/21 00:01 03/13/21 00:19 Sodium Chloride 0.9% 10 Ml Syringe FLUSH 10 ml ASDIRECTED PRN Administration Keep Vein Open - Re-Assessments/Exams Free Text/Narrative Re-Assessment/Exam: 03/13/21 00:49 The patient's history is most suggestive of a right ureterolith. Orthostatics, several blood tests, and a urinalysis were ordered at triage. I have added a CT of the abdomen and pelvis without contrast to evaluate for a ureterolith. IV fluid and IV Zofran were ordered at triage. I have added some additional Zofran and IV Dilaudid. 03/13/21 03:09 The patient is not orthostatic. His CBC is remarkable for slight leukocytosis of 10.44, with the remainder of his CBC being unremarkable. His CMP is remarkable for a BUN/Cr mildly elevated at 21/1.6, with mild hyperglycemia of 130, and the remainder of his CMP being unremarkable. His magnesium level is within normal limits at 1.9. His lipase level is within normal limits at 133. His CRP is undetectably low. CT of the abdomen and pelvis without contrast is read by [facility] as: 1. 6 mm mildly obstructing right mid ureteral stone. 2. Large hiatal hernia. 3. 2 cm fat density right adrenal nodule consistent with a lipid rich adenoma. 4. 3 mm nonobstructing left renal pelvis stone. 5. Diverticulosis without diverticulitis. The patient has not yet provided a urine sample for the urinalysis. 03/13/21 03:20 In order to assist the patient with urination, I have ordered a 1 L bolus of IV fluid. 03/13/21 05:20 The patient's urinalysis is remarkable for 2+ occult blood with 10-20 RBCs, leukocyte esterase negative with 0-5 WBCs, nitrate negative with few bacteria, and 0-5 squamous epithelial cells. 03/13/21 05:24 Test results discussed with the patient. At 6 mm in the mid-ureter, the patient will not likely pass it on his own. I will discharge him home with prescriptions for Percocet, tamsulosin, and Zofran. He can take [id number] ibuprofen, in addition. I will refer him to Dr. Cadet for urologic follow-up. Departure - Departure Time of Disposition: 05:25 Disposition: Home, Self-Care 01 Condition: Good Clinical Impression: Ureterolithiasis - Discharge Information *PRESCRIPTION DRUG MONITORING PROGRAM REVIEWED*: Not Applicable *COPY OF PRESCRIPTION DRUG MONITORING REPORT IN PATIENT ROSIE: Not Applicable Prescriptions: Tamsulosin [Flomax] 1 cap PO QAM PRN #15 cap.er PRN Reason: Pain Acetaminophen/oxyCODONE [Percocet 325-5 MG] 1 - 2 tab PO Q6H PRN #24 tab PRN Reason: Pain (Severe 7-10) Ondansetron [Zofran ODT] 1 tab PO Q8H PRN #20 tab.dis PRN Reason: Nausea/Vomiting Referrals: Sarah Melchor MD [Primary Care Provider] - Emre Cadet MD [Ordering Only Provider] - Forms: ED Department Discharge Additional Instructions: You were seen in the emergency room after developing nausea and vomiting, followed by right flank pain last night. Work-up in the ER included positional blood pressure checks, several blood tests, a urinalysis, and a CT of your abdomen and pelvis. Your blood work indicated mild kidney impairment and a mildly elevated blood sugar of 130. The CT scan confirmed a 6 mm stone in the middle of your right ureter. Based on the size and location of the stone, it is not likely that you will pass it on your own. Prescriptions for the opioid pain reliever Percocet, the anti-spasm medicine tamsulosin, and the antinausea medicine Zofran have been provided to you. We recommend that you take 3 tablets (600 mg) of midp-ivp-jcpybrb ibuprofen up to every 8 hours, with food, [id number] initially, then as needed for pain. You may take 1 to 2 tablets of Percocet up to every 6 hours, as needed for pain not relieved by ibuprofen. Take 1 tablet of tamsulosin every morning, starting this morning, 03/13/2021, as prescribed. You may dissolve 1 tablet of Zofran on your tongue up to every 8 hours, as n eeded for nausea/vomiting. Stay adequately hydrated. It does not really matter what type of fluid you drink. Follow-up with the Urologist Dr. Emre Cadet, in [place], at the next available appointment. Make sure that the striping machine operator understands that you are following up from the ER. If any other problems, please do not hesitate to return to the ER. Sepsis Event Note (ED) - Evaluation Sepsis Screening Result: No Definite Risk
[2021-03-13] MEDS ORDERED: Sodium Chloride 0.9% 1,000 ML IV ONE (03:20)
[2021-03-13] MEDS ORDERED: Ondansetron 4 MG/2 ML SDV ONE (03:28)
--- NOTE | 2021-03-13 06:47 | CT ---
CT abdomen and pelvis Technique: Multiple axial sections were obtained from above the dome of the diaphragm inferiorly through the pubic symphysis. Intravenous contrast was not utilized. Study has been performed ureteral stone protocol. Comparison: Prior CT abdomen and pelvis exam of 11/05/20. Findings: Right kidney shows hydronephrosis. This finding is due to an obstructing stone measuring 5 mm which is located within the proximal right ureter slightly past the UPJ. No other ureteral calcifications are seen. Left kidney shows two small nonobstructing calculi with largest calculus measuring about 3-4 mm. Visualized lung bases show nothing acute. Fairly large hiatal hernia is seen. There is slight chronic parenchymal lung changes seen next to the hiatal hernia. Nodule is noted within the right adrenal gland measuring approximately 1.8 cm. This is felt to represent a benign adenoma. Adrenal glands are otherwise unremarkable. Pancreas shows no discrete abnormality. Gallbladder contains no calcified gallstones. Abdominal aorta shows no aneurysm. No retroperitoneal adenopathy or mesenteric abnormalities are seen. Appendix is seen which is normal. No pelvic mass or adenopathy is noted. Bone window settings were reviewed which show no acute osseous abnormality. Impression: 1. 5 mm obstructing calculus within the proximal right ureter located slightly past the UPJ causing proximal hydronephrosis. 2. Two nonobstructing calculi within the left kidney. 3. Other findings as noted above which are felt to be chronic. Diagnostic code #3 I agree with preliminary report from [facility], finalized on 03/13/21, 3:44 AM [facility] M[facility]IPLE SPIND[facility], code 1
== END 2021-03-13 06:06 | disposition home or self-care (01) ==
LOC: JD.ED 23:43
DX: N13.2 Hydronephrosis with renal and ureteral calculous obstruction (principal); K21.9 Gastro-esophageal reflux disease without esophagitis; Z91.013 Allergy to seafood; Z91.030 Bee allergy status; Z79.899 Other long term (current) drug therapy; Z87.891 Personal history of nicotine dependence; Z86.16 Personal history of COVID-19
CPT/HCPCS: 36415; 74176; 80053; 81001; 83690; 83735; 85025; 86140; 96374; 96375; 96376; 99284; J1170; J2405; J7030

== ENCOUNTER 2022-03-10 02:38 | Emergency (ER) | payer BC, OTHER ==
[2022-03-10] MEDS ORDERED: Sodium Chloride 0.9% 10 ML Syringe FLUSH PRN (03:10)
[2022-03-10] MEDS ORDERED: Ketorolac 30 MG/ML SDV IVPUSH ONE (03:15)
[2022-03-10] MEDS ORDERED: Sodium Chloride 0.9% 1,000 ML IV SCH (03:15)
[2022-03-10] MEDS ORDERED: Ondansetron 4 MG/2 ML SDV IVPUSH ONE (03:17)
== END 2022-03-10 05:22 | disposition home or self-care (01) ==
LOC: JD.ED 02:38
DX: N13.2 Hydronephrosis with renal and ureteral calculous obstruction (principal); K21.9 Gastro-esophageal reflux disease without esophagitis; Z91.013 Allergy to seafood; Z91.030 Bee allergy status; Z79.899 Other long term (current) drug therapy
CPT/HCPCS: 36415; 74176; 80053; 81001; 85025; 96361; 96374; 96375; 99284; J1885; J2405; J3490; J7030